=== PATIENT | male | born 2000 | race Caucasian/White ===

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

== ENCOUNTER 2022-02-04 08:27 | Emergency (ER) | payer OTHER, SELFPAY ==
--- NOTE | ~2022-02-04 | XR_ITS ---
XR hand RT min 3V DATE: 02/04/2022 09:02 INDICATION: Glass cut. Evaluate for possible radiopaque foreign body at proximal fifth digit TECHNIQUE: 3 views of right hand COMPARISON: None FINDINGS: Very thin approximately 1 7 mm long linear opacity is noted overlying the base of the fifth digit dorsally on the lateral view, possibly a small radiopaque sliver of glass. No other radio opaque foreign body or fracture, dislocation, periosteal reaction or bone destruction is detected. IMPRESSION: Possible very small subtle radiopaque foreign body at base of fifth digit Reviewed, dictated and finalized at location A.
[2022-02-04 08:28] VITALS: BP 147/88; PULSE 71; RESP 16; TEMP 36.1; O2SAT 99
--- NOTE | 2022-02-04 10:06 | ED.WOUNDLAC ---
HPI - Wound/Laceration General Chief Complaint: Extremity Injury, Upper Stated Complaint: right hand injury Time Seen by Provider: 02/04/22 09:24 Source: patient Mode of arrival: ambulatory Limitations: no limitations History of Present Illness HPI narrative: Patient is a 21 y/o R hand dominant male who presents to the ED with c/o laceration to his R hand. Patient reports he was cleaning a basement last night and cut himself on a broken glass window around 11 PM. Laceration over fifth MCP joint. He states the laceration seemed minor last night and he was not evaluated. Laceration seemed more gaping today, which prompted his presentation. Denies any numbness, tingling, weakness. Tetanus UTD 1 yr ago. Related Data Allergies Allergy/AdvReac Type Severity Reaction Status Date / Time codeine AdvReac Mild Anxiety Verified 06/14/21 12:31 Review of Systems Review of Systems: CONSTITUTIONAL: Denies fever. SKIN: Reports laceration to right hand over fifth MCP joint. NEUROLOGIC: Denies numbness, tingling, or weakness. All systems reviewed & are unremarkable except as noted in HPI and below PMFSH Past Medical History Medical History (Updated 02/04/22 @ 10:47 by Fara Laureano PA-C) Asthma Hx of reduction of nasal fracture Surgical History Surgical History Hx of tonsillectomy 2005 Social History Social History Tobacco type: e-cigarettes/vaping Exam Narrative: GENERAL: Well appearing, well-nourished, non-toxic, in no acute distress. HEAD: Normocephalic, atraumatic. NECK: Supple. No adenopathy, no masses. RESPIRATORY: Airway patent, respirations nonlabored. CARDIOVASCULAR: Regular rate and rhythm without murmurs, rubs, or gallops. Radial pulses 2+ and equal bilaterally. ABDOMINAL: Soft, nontender, nondistended, no hepatosplenomegaly. Normoactive BS. MUSCULOSKELETAL: Moves all extremities. Strength/ROM intact. Sensation intact. 2.5 cm semicircular flap laceration of her right fifth MCP joint dorsally extending into webspace between 4th and 5th digits. Bleeding controlled at this time. SKIN: Warm, dry, normal color. No rashes. NEURO: A&O X3. Speech clear. Cranial nerves II-XII grossly intact. Steady gait. No ataxic movements. PSYCHIATRIC: Appropriate mood and affect. Normal interaction. Course Vital Signs Vital signs: Vital Signs Temperature 96.9 F L 02/04/22 08:28 Pulse Rate 71 02/04/22 08:28 Respiratory Rate 16 02/04/22 08:28 Blood Pressure 147/88 H 02/04/22 08:28 Pulse Oximetry 99 02/04/22 08:28 Oxygen Delivery Room Air 02/04/22 08:28 Temperature 96.9 F L 02/04/22 08:28 Pulse Rate 71 02/04/22 08:28 Respiratory Rate 16 02/04/22 08:28 Blood Pressure 147/88 H 02/04/22 08:28 Pulse Oximetry 99 02/04/22 08:28 Oxygen Delivery Room Air 02/04/22 08:28 Procedures Laceration Laceration 1: Date: 02/04/22 Time: 11:00 Site: hand Side (If applicable): right Size (cm): 2.5 Description: flap and irregular Depth: simple, single layer Local Anesthetic: lidocaine 1% and with epi Amount of anesthesia used (mL): 6 Pre-repair: wound explored, irrigated extensively and minor debridement ====== Skin Level ====== Skin layer closed with: nylon Size (cm): 4-0 Number of sutures: 8 Technique: simple, interrupted ====== Subcutaneous Layer ====== ====== Muscle Layer ====== ====== Tendon Layer ====== MDM - Wound/Laceration MDM Narrative Medical decision making narrative: Presented to ED w/ lac to R 5th MCP joint/webspace that occurred last night. Sensation/ROM intact. XR showed no osseous abnormality, but possible small FB. Wound was thoroughly explored and irrigated, no foreign bodies were found. Laceration repaired without complications. Tetanus up-to-date. Due to somew
== END 2022-02-04 11:40 | disposition home or self-care (01) ==
PROVIDERS: Emergency Provider Emergency Medicine; PCP Pediatrics Adolescent Medicine
DX: S61.411A Laceration without foreign body of right hand, initial encounter (principal); J45.909 Unspecified asthma, uncomplicated; F17.290 Nicotine dependence, other tobacco product, uncomplicated; W25.XXXA Contact with sharp glass, initial encounter
CPT/HCPCS: 12001; 73130; 99283

== ENCOUNTER 2022-12-01 17:18 | Emergency (ER) | payer SELFPAY ==
[2022-12-01 17:27] VITALS: BP 138/64; PULSE 75; RESP 16; TEMP 37.7; O2SAT 99
--- NOTE | 2022-12-01 17:59 | ED.URI ---
HPI - URI/Sore Throat General Chief Complaint: Upper Respiratory Infection Stated Complaint: Sore Throat Time Seen by Provider: 12/01/22 18:19 Source: patient and RN notes reviewed Mode of arrival: ambulatory Limitations: no limitations History of Present Illness HPI Narrative: 22-year-old male presents with concern for 10 day history of sore throat. When he 1st started having symptoms he reports he had fever, chills, body aches. He has had intermittent headache throughout the week. He reports mild runny nose. Denies nasal congestion, sinus pain. Denies cough MD elicited complaint: sore throat Related Data Allergies Allergy/AdvReac Type Severity Reaction Status Date / Time codeine AdvReac Mild Anxiety Verified 12/01/22 17:40 Review of Systems Review of Systems: CONSTITUTIONAL: Denies malaise, chills, sweats. Reports fever. EYES: Denies visual changes, redness, or discharge. ENT: Reports rhinorrhea. Denies congestion, sinus pain, otalgia. Reports sore throat. CARDIOVASCULAR: Denies chest pain, palpitations, or edema. RESPIRATORY: Denies cough. Denies dyspnea. GASTROINTESTINAL: Denies abdominal pain, nausea, vomiting, diarrhea SKIN: Denies rash or itching. MUSCULOSKELETAL: Reports myalgia. NEUROLOGIC: Reports headache. All systems reviewed & are unremarkable except as noted in HPI and below PMFSH Past Medical History Medical History (Updated 12/01/22 @ 18:22 by Sarai Gonzalez NP) Asthma Hx of reduction of nasal fracture Surgical History Surgical History Hx of tonsillectomy 2004 Social History Social History Tobacco type: e-cigarettes/vaping Comments At time of signature, agree with nursing past medical, surgical, social and family history. There is no relevant family history pertinent to the presenting complaint Exam Narrative: GENERAL: Well-appearing, well-nourished, and in no acute distress. HEAD: Normocephalic EYES: PERRLA, conjunctivae clear ENT: Nares clear. Mucous membranes moist. TM pearly lyles with dull light reflex bilaterally; no tragal tenderness. Oropharynx erythematous without lesions. Tonsils not enlarged and without exudate, no drooling, no hoarseness, no trismus, uvula midline. NECK: Supple. No lymphadenopathy CHEST: Clear to auscultation, breath sounds equal. No wheezing, rhonchi, rales, or stridor. No respiratory distress, speaks in full sentences. HEART: Regular rate and rhythm. No murmur heard. SKIN: Warm, dry, no rash. NEURO: Alert and oriented x3. PSYCH: Normal mood and affect Course Course Emergency Course: Discussed culture with patient, discussed that since his symptoms have been present for 10 days without relief, presents of headache and body aches will treat prophylactically pending culture Patient is aware of diagnosis, understands and agrees to treatment plan. Anticipatory guidance given. Patient agrees to follow-up as directed and is aware of reasons to seek care at the emergency department. Portions of this record may have been created with voice recognition software Level of Care: Express Care Visit Vital Signs Vital signs: Vital Signs Temperature 99.8 F H 12/01/22 17:27 Pulse Rate 75 12/01/22 17:27 Respiratory Rate 16 12/01/22 17:27 Blood Pressure 138/64 12/01/22 17:27 Pulse Oximetry 99 12/01/22 17:27 Oxygen Delivery Room Air 12/01/22 17:27 Temperature 99.8 F H 12/01/22 17:27 Pulse Rate 75 12/01/22 17:27 Respiratory Rate 16 12/01/22 17:27 Blood Pressure 138/64 12/01/22 17:27 Pulse Oximetry 99 12/01/22 17:27 Oxygen Delivery Room Air 12/01/22 17:27 Reviewed. MDM - URI/Sore Throat MDM Narrative Medical decision making narrative: Differential diagnosis considered: [place] virus, strep pharyngitis, allergic rhinitis, upper respiratory tract infection, sinusitis, rhinosinusitis, nasopha
== END 2022-12-01 18:26 | disposition home or self-care (01) ==
PROVIDERS: Emergency Provider Nurse Practitioner; PCP Pediatrics Adolescent Medicine
DX: J02.9 Acute pharyngitis, unspecified (principal); J45.909 Unspecified asthma, uncomplicated; F17.290 Nicotine dependence, other tobacco product, uncomplicated
CPT/HCPCS: 87081; 87880; 99213; G0463

== ENCOUNTER 2024-01-23 07:57 | Emergency (ER) | payer SELFPAY ==
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
[2024-01-23 07:58] VITALS: BP 134/86; PULSE 88; RESP 14; TEMP 36.6; O2SAT 94
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
[2024-01-23] MEDS: KETOROLAC 30 MG/ML VIAL (*BKC) IM (09:35)
[2024-01-23 09:40] VITALS: BP 134/86; PULSE 78; RESP 16; O2SAT 99
== END 2024-01-23 09:41 | disposition home or self-care (01) ==
PROVIDERS: Emergency Provider Emergency Medicine
DX: S09.93XA Unspecified injury of face, initial encounter (principal); J45.909 Unspecified asthma, uncomplicated; F17.290 Nicotine dependence, other tobacco product, uncomplicated; Y04.2XXA Assault by strike against or bumped into by another person, initial encounter
CPT/HCPCS: 70450; 96372; 99284; J1885